=== PATIENT | female | born 1995 | race African-American/Black ===

== ENCOUNTER 2023-08-15 10:31 | Emergency (ER) | payer SELFPAY ==
[~2023-08-15] VITALS: Ht 170.2 cm; Wt 100.0 kg
[2023-08-15 10:40] VITALS: BP 123/73; PULSE 98; RESP 18; O2SAT 100
[2023-08-15 11:15] VITALS: TEMP 98
[2023-08-15] MEDS: ACETAMINOPHEN 650MG/20.3ML UDC PO ONE (11:15)
== END 2023-08-15 12:55 | disposition home or self-care (01) ==
LOC: ER 10:31
DX: J02.9 Acute pharyngitis, unspecified (principal)
CPT/HCPCS: 87070; 87430; 99283